=== PATIENT | male | born 1940 | race Caucasian/White ===

== ENCOUNTER 2016-10-03 23:53 | Observation (INO) | payer MEDICARE, OTHER ==
--- NOTE | ~2016-10-03 | HP ---
History And Physical [facility] [address] [place]. [address] NAME: LOAN ANTHONY : 40 STATUS : ADM Rebel PAT#: [id number] AGE: 76 ADM/REG DATE : 10/04/16 MR#: [id number] REPORT SERV DATE: 10/04/16 DICTATED BY: DATE: REPORT STATUS : Draft TRANSCRIBED BY: MODL DATE: 10/04/16 DATE OF ADMISSION: 10/04/2016 [facility] [employer] CHAIR: Dr. Arnold. CHIEF COMPLAINT: Fatigue and chest pressure. HISTORY OF PRESENT ILLNESS: This is a very pleasant 76-year-old white male with a history of chronic atrial fibrillation, coronary artery disease, status post PCI, who reports having fatigue in the last couple of weeks that have worsened yesterday. Yesterday morning, the patient reports while breaking beans, his left hand and shoulder became numb and then he developed chest pressure 1/10, occurring after the numbness to his arm. He reports the chest pressure lasted 10 to 15 minutes and resolved on its own. He does report that the chest pain occurred 2 to 3 more times yesterday and lasted 5 minutes and also resolved on its own and did not radiate anywhere else. He denies having any nausea, vomiting, shortness of breath, or diaphoresis. He does report that about 3 weeks ago, he had some nausea, vomiting, and diarrhea and he is unsure if he had any chest pain or pressure at that time. He finds that event to be significant to possibly be related to his chest pain today. He reports that walking uphill, he has had to stop multiple times due to his fatigue in the last 2 to 3 weeks. Currently, the patient is chest pain-free. He denies any shortness of breath, chest pain, nausea, vomiting, abdominal pain, or any palpitations. The patient also denies any personal history of stroke, DVT, or pulmonary embolus. The patient denies any recent fever or chills. No palpitations. No syncopal episodes. The patient denies PND or orthopnea. PAST MEDICAL HISTORY: 1. Includes coronary artery disease, catheterization in October 2009, and a nuclear test in April of 2010, that was negative for ischemia per office visit note on 08/26/2016. 2. Chest pain. 3. Chronic atrial fibrillation which has been rate controlled in the past and anticoagulated. 4. 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 5. Hyperlipidemia. 6. Hypertension. 7. Sleep apnea. 8. Type 2 diabetes. PAST SURGICAL HISTORY: The patient reports the cath in October of 2009. 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 He is , with two children. Has smoked one pack per day for 3 to 4 years. He quit in 1962. He denies any alcohol use. He denies any illicit drug use. FAMILY HISTORY: Mother with a CVA. No cardiac history. Father with a CAB at the age of 80. History And Physical [address] [address] NAME: LOAN ANTHONY : 40 STATUS : ADM Rebel PAT#: [id number] AGE: 76 ADM/REG DATE : 10/04/16 MR#: [id number] REPORT SERV DATE: 10/04/16 DICTATED BY: DATE: REPORT STATUS : Draft TRANSCRIBED BY: MODL DATE: 10/04/16 REVIEW OF SYSTEMS: A 14-point review of systems was performed, significant for HPI. No other contributory diagnosis identified. ALLERGIES: NO KNOWN ALLERGIES. HOME MEDICATIONS: 1. Metoprolol 100 mg p.o. twice a day. 2. Cardizem CD 360 mg p.o. every morning. 3. Cozaar 100 mg p.o. at bedtime. 4. Protonix 40 mg p.o. every morning. 5. Warfarin sodium 3.5 mg p.o. at bedtime. 6. Metformin ER 1000 mg p.o. at bedtime. 7. Flomax 0.4 mg p.o. at bedtime. 8. Aspirin 81 mg p.o. every morning. 9. Atorvastatin 20 mg p.o. at bedtime. 10.Proscar 5 mg p.o. every morning. PHYSICAL EXAMINATION: VITAL SIGNS: Blood pressure 145/98, heart rate ranges from 93 to 114, temperature 96.8, respirations 20, and O2 saturation 98% on room air. GENERAL: Cooperative, in no apparent distress, hard of hearing. HEENT: Head normocephalic, anicteric. Normal EOM. PERRLA. No xanthelasma. Nares patent. Moist mucous membranes. NECK: Trachea midline. No thyromegaly, JVD or bruits. RESPIRATORY: Clear to auscultation bilaterally anterior and posterior. Respirations even and unlabored. No wheezes, rhonchi or crackles. CARDIOVASCULAR: Irregularly irregular, not regular rhythm. Murmur. No rub or gallop appreciated. No chest wall tenderness to palpation. ABDOMEN: Soft, nontender, nondistended, normal bowel sounds auscultated throughout. No masses or organomegaly. EXTREMITIES: DP/PT and radial pulses palpable bilaterally. No clubbing or cyanosis. Trace bilateral lower extremity edema. SKIN: Warm, dry and intact. Normal turgor. No pallor or cyanosis. NEURO/PSYCH: Alert, oriented x3 with no acute distress. Affect appropriate to current situation. LABORATORY DATA: Troponin x3 have been less than 0.02. Sodium 141, potassium 4.0, BUN 20, creatinine 1.34, GFR 59, glucose 114, calcium 8.7, and magnesium 1.9. White blood cells 4.8, hemoglobin 11.5, hematocrit 33.9, and platelets 174. INR 2.3. TSH 2.200. Chest x-ray from yesterday shows minimal bibasilar atelectasis, mild enlargement of cardiac silhouette, otherwise no acute cardiopulmonary abnormalities identified. EKG shows atrial fibrillation 98, nonspecific ST changes. groundwater monitoring technician shows atrial fibrillation 93 to 123. Echocardiogram on 02/16/2016, shows an EF of 45 to 50%. LAE, mild History And Physical [address] [address] NAME: LOAN ANTHONY : 40 STATUS : ADM Rebel PAT#: [id number] AGE: 76 ADM/REG DATE : 10/04/16 MR#: [id number] REPORT SERV DATE: 10/04/16 DICTATED BY: DATE: REPORT STATUS : Draft TRANSCRIBED BY: MODL DATE: 10/04/16 MR and AO, mild to moderate TR, RVSP 32 mmHg. ASSESSMENT AND PLAN: 1. Chest pain. Troponins x3 have been negative. The patient denies any current chest pain. The patient is on aspirin, statin, losartan, and metoprolol. The patient's cardiac risk factors include hypertension, hyperlipidemia, diabetes, and a history of tobacco use. The patient will be observed to rule out a myocardial infarction with serial enzymes and serial EKGs. The patient will be kept n.p.o. and we will plan an MPI today. I will also check an echocardiogram today. 2. Coronary artery disease, status post PCI. The patient is on aspirin, statin, beta erick, and ARB. Due to patient's complaint of chest pain and the patient's symptoms, we will order an MPI today. If the stress test shows no ischemia or low risk stress test and the atrial fibrillation becomes rate controlled, the patient may be discharged home and follow up with PCP in one week and follow up with [facility] in three to four weeks [address] Dr. Arnold. If anything suggestive of ischemia on the stress test, Cardiology referral will be initiated. 3. Chronic atrial fibrillation. The patient is on Coumadin. INR has been 2.3. Today, we will continue the patient's home medications and attempt to rate control due to patient already being on maxed out doses of diltiazem and metoprolol. I will add clonidine a transdermal patch 0.1 mg weekly. The patient is also asymptomatic to his atrial fibrillation. 4. Diabetes type 2. We will hold metformin. Blood sugar is 94. We will start a sliding scale level 1. 5. Hypertension. I will address the home medications, therefore the blood pressure medications should be restarted, also due to the patient being hypertensive even though the patient is maxed out on the diltiazem and metoprolol. I have discussed starting a new medication with Dr. Alas and we have decided to start clonidine 0.1 mg transdermal patch weekly to assist with the patient's hypertension and hopefully with a little bit of rate control. 6. Hyperlipidemia. The patient is on a statin. On a side note, the patient's Coumadin was checked by Dr. Arnold's office and we will schedule that at the patient's discharge. EKS/MODL Regina Merida APN / [id number] CC: Devika Rocha, WILBER, SH[employer] VEHICLE OPERATOR-BC LIZA Arnold M.D.
[2016-10-03 19:30] LABS: BASOPHILS 0.2 %; BASOPHILS ABSOLUTE 0.01 10/3/uL (0.0-0.16); EOSINOPHILS 1.7 %; EOSINOPHILS ABSOLUTE 0.08 10/3/uL (0.0-0.53); ER CBC TAT 0 Hrs 07 Mins; HEMOGLOBIN 11.5 g/dL (13.6-17.8); IMMATURE GRANULOCYTES 0.2 %; IMMATURE GRANULOCYTES ABSOLUTE 0.01 10/3/uL (0.0-0.11); LYMPHOCYTES 14.9 %; LYMPHOCYTES ABSOLUTE 0.71 10/3/uL (0.67-4.30); MEAN CORPUS HGB CONC 33.9 g/dL (32.0-36.0); MEAN CORPUSCULAR HEMOGLOB 30.7 pg (26.0-34.0); MEAN CORPUSCULAR VOLUME 90.4 fL (80-100); MEAN PLATELET VOLUME 10.6 fL (9.2-13.0); MONOCYTES 6.9 %; MONOCYTES ABSOLUTE 0.33 10/3/uL (0.21-1.20); NEUTROPHILS 76.1 %; NEUTROPHILS ABSOLUTE 3.64 10/3/uL (2.02-8.40); PLATELET COUNT 174 10/3/uL (150-400); RBC DISTRIBUTION WIDTH 14.2 % (12.0-16.0); RED CELL COUNT 3.75 10/6/uL (4.7-6.1); WHITE BLOOD CELLS 4.8 10/3/uL (4.5-10.5)
[2016-10-03 19:31] LABS: HEMATOCRIT 33.9 % (40.0-51.0); MANUAL DIFF NO %
[2016-10-03 19:38] LABS: INTERNATIONAL NORMAL RATI 2.3 UNITS (-); PARTIAL THROMBO TIME 34.8 SEC (22.5-37.2)
[2016-10-03 19:49] LABS: BUN (BLOOD UREA NITROGEN) 20 MG/DL (6-23); CALCIUM, SERUM 8.7 MG/DL (8.5-10.4); CHEST PAIN PROFILE TAT 0 Hrs 26 Mins; CHLORIDE, SERUM 110 MMOL/L (96-112); CO2 (CARBON DIOXIDE) 27 MMOL/L (24-34); CREATININE 1.35 MG/DL (0.70-1.30); GFR AFRICAN AMERICAN 59 ML/MIN (>=60); GFR NON AFRICAN AMERICAN 51 ML/MIN (>=60); GLUCOSE, SERUM 114 MG/DL (60-99); SODIUM, SERUM 141 MMOL/L (135-148); TROPONIN I <0.02 NG/ML (<0.05)
[2016-10-03 19:50] LABS: PROTIME (NOT ORD) 25.1 SEC (12.0-14.5)
[2016-10-03 22:55] LABS: ASCORBIC ACID (UR NOT ORDER) NEG (NEG); BILIRUBIN, URINE NEGATIVE (NEG); ER URINALYSIS TAT 0 Hrs 00 Mins; KETONE, URINE NEGATIVE (NEG); LEUKOCYTE ESTERASE(NOT OR NEG (NEG); NITRITE (URINE) NEG (NEG); WBC (NOT ORDERED) (RFLEX) 1 (0-5)
[~2016-10-03 23:53] MED LIST: CARDIZEM LA360 MG PO; FLOMAX4 PO; FORTAMET1000 MG PO; JANTOVEN4 MG PO; LIPITOR20 PO; LOP100 PO; PROTONIX PO
[2016-10-04] MEDS ORDERED: PROTONIX PO (01:03)
[2016-10-04] MEDS ORDERED: LOP100 PO (01:03)
[2016-10-04] MEDS ORDERED: COZAAR100 MG PO (01:03)
[2016-10-04] MEDS ORDERED: CARDCD360 PO (01:03)
[2016-10-04] MEDS ORDERED: JANTOVEN1 MG PO (01:04)
[2016-10-04] MEDS ORDERED: FLOMAX4 PO (01:04)
[2016-10-04] MEDS ORDERED: HALF81 PO (01:04)
[2016-10-04] MEDS ORDERED: LIPITOR20 PO (01:04)
[2016-10-04] MEDS ORDERED: FORTAMET1000 MG PO (01:04)
[2016-10-04] MEDS ORDERED: PROSCAR5 PO (01:05)
[2016-10-04] MEDS ORDERED: CATPATCH1 TOP (18:31)
[2016-10-04] MEDS ORDERED: SPIRO25 PO (18:31)
== END 2016-10-04 20:45 | disposition home or self-care (01) ==
LOC: ER 23:53 → CDU1 10-04 00:53 → 5NO 10-04 01:21
PROVIDERS: Emergency Medicine
DX: R07.9 Chest pain, unspecified (principal); I48.2 Chronic atrial fibrillation; I25.10 Atherosclerotic heart disease of native coronary artery without angina pectoris; E78.5 Hyperlipidemia, unspecified; I10 Essential (primary) hypertension; K21.9 Gastro-esophageal reflux disease without esophagitis; G47.30 Sleep apnea, unspecified; E11.9 Type 2 diabetes mellitus without complications; Z87.891 Personal history of nicotine dependence; Z79.82 Long term (current) use of aspirin; Z79.899 Other long term (current) drug therapy; Z79.01 Long term (current) use of anticoagulants; Z87.442 Personal history of urinary calculi; Z98.890 Other specified postprocedural states
CPT/HCPCS: 71020; 78452; 80048; 81001; 82962; 83735; 84443; 84484; 85025; 85610; 85730; 93005; 93017; 93306; 99285; A9270-GY; A9502; G0378